=== PATIENT | female | born 2005 | race Caucasian/White ===

== ENCOUNTER 2024-08-25 11:49 | Emergency (ER) | payer MEDICAID ==
[~2024-08-25] VITALS: Ht 165.1 cm; Wt 59.0 kg
[2024-08-25 11:52] VITALS: BP 122/77; PULSE 108; RESP 25; TEMP 98; O2SAT 98
[2024-08-25 12:00] VITALS: BP 122/77; PULSE 108; RESP 25; TEMP 98
[2024-08-25 12:27] VITALS: O2SAT 98
[2024-08-25] MEDS: MORPHINE SULFATE 4 MG/ML SYR IVP ONE (12:36)
[2024-08-25] MEDS: AMOXIL/CLAVULANATE 875/125 MG 1 TAB PO ONE (12:40)
[2024-08-25] MEDS ORDERED: BACITRACIN OINT 500 UNITS/GM PKT TP ONE (15:02)
[2024-08-25] MEDS ORDERED: AMOX1TAB8 PO (15:10)
[2024-08-25] MEDS: BACITRACIN OINT 500 UNITS/GM PKT TP ONE (15:17)
== END 2024-08-25 15:27 | disposition home or self-care (01) ==
LOC: MED 11:49
DX: S61.451A Open bite of right hand, initial encounter (principal); S41.151A Open bite of right upper arm, initial encounter; S51.851A Open bite of right forearm, initial encounter; Z79.899 Other long term (current) drug therapy; W54.0XXA Bitten by dog, initial encounter; Y93.89 Activity, other specified; Y92.89 Other specified places as the place of occurrence of the external cause; Y99.8 Other external cause status
CPT/HCPCS: 73130; 90471; 90715; 96374; 99284; J2270